=== PATIENT | male | born 1965 | race Caucasian/White ===

== ENCOUNTER 2018-01-31 01:20 | Emergency (ER) | payer OTHER ==
[~2018-01-31] VITALS: Ht 175.3 cm; Wt 109.1 kg
[2018-01-31 01:20] VITALS: TEMP 97.7
[2018-01-31 01:45] LABS: BASO % 0.5 % (0.0-2.0); EOS # 0.1 (0.0-0.7); EOS % 1.2 % (0-4.0); GRAN # 3.1 (1.4-6.5); GRAN % 41.4 % (42.2-75.2); HEMATOCRIT 46.1 % (42.0-52.0); HEMOGLOBIN 15.8 g/dl (13.5-18.0); LYMPH # 3.6 (1.2-3.4); LYMPH % 48.4 % (20.0-51.0); MEAN CELL VOLUME 87 fl (80.0-100.0); MEAN CORPUSCULAR HEMOGLOBIN 30 pg (27.0-31.0); MEAN CORPUSCULAR HGB CONC 34 g/dl (33.0-37.0); MEAN PLATELET VOLUME 9.6 fl (7.4-10.4); MONO # 0.5 (0.1-0.6); MONO % 7.2 % (1.7-9.3); PLATELET COUNT 241 K/mm3 (130-400); REDCELL DISTRIBUTION WIDTH-CV 13.2 % (11.5-14.5)
[2018-01-31 01:50] LABS: INR 1.1 (0.8-3.0); PROTHROMBIN TIME 12.3 SECONDS (9.7-12.8)
[2018-01-31 01:56] LABS: BILIRUBIN,TOTAL 0.6 mg/dL (0.0-1.0); CALCIUM 8.1 mg/dL (8.4-10.2); CREATININE, serum 1.11 mg/dL (0.66-1.25); POTASSIUM 3.4 mmol/L (3.4-5.0); TOTAL PROTEIN 6.7 gm/dL (6.4-8.2)
[2018-01-31 04:55] VITALS: BP 111/78; PULSE 99
== END 2018-01-31 04:57 | disposition short-term general hospital (02) ==
LOC: COL.ER 01:20
PROVIDERS: Emergency Medicine
DX: S06.6X9A Traumatic subarachnoid hemorrhage with loss of consciousness of unspecified duration, initial encounter (principal); Z23 Encounter for immunization; V27.9XXA Unspecified motorcycle rider injured in collision with fixed or stationary object in traffic accident, initial encounter
CPT/HCPCS: J2405; J3010; Q9967

== ENCOUNTER 2018-02-10 09:32 | Inpatient (IN) | payer OTHER ==
[~2018-02-10] VITALS: Ht 175.3 cm; Wt 101.9 kg
[2018-02-10] MEDS ORDERED: TYLENOL 325MG325 MG PO (11:26)
[2018-02-10] MEDS ORDERED: FIORICET 325 MG1 TA1 PO (11:29)
[2018-02-10] MEDS ORDERED: FLEXERIL 1010 MG/TAB PO (11:30)
[2018-02-10] MEDS ORDERED: DULCOLAX STOOL100 MG PO (11:31)
[2018-02-10] MEDS ORDERED: NEURONTIN300 MG/CAP PO (11:36)
[2018-02-10] MEDS ORDERED: LIDODERM 5% PATC1 EA TP (11:38)
[2018-02-10] MEDS ORDERED: MELAT3MGTAB PO (11:39)
[2018-02-10] MEDS ORDERED: MIRALAX PA17 GM/Dose PO (11:41)
[2018-02-10] MEDS ORDERED: ROXICODONE 55 MG/TAB PO (11:41)
[2018-02-10] MEDS ORDERED: ADVIL MIGRAINE200 MG PO (11:43)
[2018-02-10 16:11] LABS: COLLECTION METHOD CLEAN CATCH
[2018-02-10 16:17] LABS: PH 7 (5-8); SQUAMOUS EPITHELIAL None Seen /hpf; URINE APPEARANCE Clear; URINE BACTERIA None Seen /hpf; URINE BILIRUBIN Negative (NEGATIVE); URINE BLOOD Negative (NEGATIVE); URINE COLOR Straw; URINE GLUCOSE Negative (NEGATIVE); URINE KETONE Negative (NEGATIVE); URINE LEUKOCYTE ESTERASE Negative (NEGATIVE); URINE NITRATE Negative (NEGATIVE); URINE PROTEIN(semi-quant) Negative (NEGATIVE); URINE RBC None Seen /hpf; URINE UROBILINOGEN Negative (NEGATIVE)
[2018-02-10 16:51] VITALS: BP 117/78; PULSE 84; TEMP 97.4
[2018-02-10 17:57] VITALS: BP 117/87; PULSE 84; TEMP 97.4
[2018-02-11 03:29] VITALS: BP 138/90; PULSE 81; TEMP 97.8
[2018-02-11 18:26] VITALS: BP 125/90; PULSE 104; TEMP 97
[2018-02-12 05:53] VITALS: BP 138/80; PULSE 74; TEMP 97.6
[2018-02-12 07:07] LABS: BASO % 0.5 % (0.0-2.0); EOS # 0.2 (0.0-0.7); EOS % 3.5 % (0-4.0); GRAN # 3.1 (1.4-6.5); GRAN % 47.4 % (42.2-75.2); HEMATOCRIT 41.7 % (42.0-52.0); HEMOGLOBIN 14.1 g/dl (13.5-18.0); LYMPH # 2.3 (1.2-3.4); LYMPH % 35.2 % (20.0-51.0); MEAN CELL VOLUME 87 fl (80.0-100.0); MEAN CORPUSCULAR HEMOGLOBIN 29 pg (27.0-31.0); MEAN CORPUSCULAR HGB CONC 34 g/dl (33.0-37.0); MONO # 0.8 (0.1-0.6); PLATELET COUNT 293 K/mm3 (130-400); REDCELL DISTRIBUTION WIDTH-CV 13.2 % (11.5-14.5)
[2018-02-12 07:21] LABS: CALCIUM 9.1 mg/dL (8.4-10.2); CREATININE, serum 0.9 mg/dL (0.66-1.25); MAGNESIUM 2.2 mg/dL (1.6-2.3); POTASSIUM 4.4 mmol/L (3.4-5.0)
[2018-02-12 17:33] VITALS: BP 142/86; PULSE 109; TEMP 98.8
[2018-02-13 05:24] VITALS: BP 121/80; PULSE 79; TEMP 98.5
[2018-02-13 17:44] VITALS: BP 140/91; PULSE 98; TEMP 98
[2018-02-14 04:58] VITALS: BP 121/67; PULSE 68; TEMP 98.5
[2018-02-14 18:25] VITALS: BP 139/96; PULSE 106; TEMP 98.9
[2018-02-15 06:13] VITALS: BP 124/83; PULSE 83; TEMP 97.8
[2018-02-15 18:11] VITALS: BP 139/82; PULSE 109; TEMP 98.7
[2018-02-16 03:43] VITALS: BP 145/93; PULSE 84; TEMP 97.5
[2018-02-16] MEDS ORDERED: FLEXERIL 1010 MG/TAB PO (08:30)
[2018-02-16] MEDS ORDERED: ZTLIDO1 EACH TP (08:30)
[2018-02-16] MEDS ORDERED: ROXICODONE 55 MG/TAB PO (08:32)
[2018-02-16] MEDS ORDERED: FIORICET 325 MG1 TA1 PO (08:32)
[2018-02-16] MEDS ORDERED: NEURONTIN300 MG/CAP PO (08:32)
== END 2018-02-16 12:42 | disposition home or self-care (01) | DRG 950 ==
PROVIDERS: Internal Medicine
DX: S00-T88 Injury, poisoning and certain other consequences of external causes (principal); V29.40XD Motorcycle driver injured in collision with unspecified motor vehicles in traffic accident, subsequent encounter; S02.81XD Fracture of other specified skull and facial bones, right side, subsequent encounter for fracture with routine healing; S32.010D Wedge compression fracture of first lumbar vertebra, subsequent encounter for fracture with routine healing; R30.0 Dysuria; G47.33 Obstructive sleep apnea (adult) (pediatric); M62.838 Other muscle spasm
CPT/HCPCS: 99222-AI; 99232-AI; 99239; J1644